=== PATIENT | male | born 1950 | race Caucasian/White ===

== ENCOUNTER 2016-09-18 03:08 | Emergency (ER) | payer MEDICARE, MEDICAID ==
[2016-09-18 04:24] LABS: CHLORIDE,CL 103 mmol/L (98-107); SODIUM,NA 140 mmol/L (136-145)
--- NOTE | 2016-09-18 04:34 | EDM.PDOC ---
ED HPI NEURO - General Chief Complaint: Neuro Symptoms/Deficits Stated Complaint: Left sided weakness with left sided facial droop Time Seen by Provider: 09/18/16 03:40 Source of Information: Reports: Patient, EMS, RN History Limitations: Reports: No limitations - History of Present Illness Symptom Onset Date: 09/18/16 Symptom Onset Time: 02:00 Timing/Duration: Reports: Improving Location (Neuro Complaint): Reports: face, lower extremity, left Quality (Neuro Complaint): Reports: weakness, altered speech Severity: mild Worsens with: Reports: None Associated Symptoms: Reports: no other symptoms Other Treatments [employer]PAR[employer]: none - Related Data Allergies/ADRs: Allergies Allergy/AdvReac Type Severity Reaction Status Date / Time Cephalosporins Allergy Cannot Verified 12/17/15 13:52 Remember Penicillins Allergy Cannot Verified 12/17/15 13:52 Remember Sulfa (Sulfonamide Allergy Cannot Verified 12/17/15 13:52 Antibiotics) Remember Past Medical History Cardiovascular History: Reports: Angina, Hypertension, PVD Respiratory History: Reports: COPD Gastrointestinal History: Reports: Chronic constipation, GERD Neurological History: Reports: Seizure Psychiatric History: Reports: Addiction, Anxiety, Dementia, Psychosis, Schizophrenia Endocrine/Metabolic History: Reports: Diabetes, type II Social & Family History - Tobacco Use Smoking Status *Q: Former Smoker ED ROS GENERAL - Review of Systems Review Of Systems: See Below Constitutional: Reports: weakness (left sided) HEENT: Reports: No symptoms Respiratory: Reports: No Symptoms Cardiovascular: Reports: Palpitations GI/Abdominal: Reports: No symptoms : Reports: no symptoms Musculoskeletal: Reports: no symptoms Skin: Reports: no symptoms Neurological: Reports: Weakness Psychiatric: Reports: No symptoms Hematologic/Lymphatic: Reports: no symptoms Immunologic: Reports: no symptoms ED EXAM, NEURO - Physical Exam Exam: See Below Exam Limited By: No limitations General Appearance: alert, WD/WN, no apparent distress Eye Exam: bilateral eye: proptosis Nose: normal inspection, normal mucosa, no blood Throat/Mouth: Normal inspection, Normal lips, Normal teeth, Normal gums, Normal oropharynx, Normal voice, No airway compromise Head Exam: other (unable to smile or raise right eyebrow) Neck: normal inspection, supple, non-tender, full range of motion, carotid bruit (bilateral) Respiratory/Chest: no respiratory distress, lungs clear, normal breath sounds, no accessory muscle use, chest non-tender Cardiovascular: irregularly irregular (atrial fibrillation) GI/Abdominal: normal bowel sounds, soft, non tender, no organomegaly, no distention, no abnormal bruit, no mass Neurological: alert, normal mood/affect, normal dorsiflexion, CN II-XII intact, oriented x 3, other (left lower extremity weakness) DTR: 1+: bicep (R), bicep (L), tricep (R), tricep (L), patella (L), achilles (L) Back Exam: normal inspection, full range of motion, NT Extremities: normal inspection, normal range of motion, non-tender, no pedal edema, normal capillary refill Psychiatric: normal affect, normal mood Skin Exam: Warm, Dry, Intact, Normal color, No rash EKG INTERPRETATION Rhythm: a-fib QRS: normal ST-T: normal QT: normal Course - Orders/Labs/Meds Orders: Active Orders 24 hr Category Date Time Status Head wo Cont [CT] Stat Exams 09/18/16 04:13 Taken Labs: Laboratory Tests 09/18/16 09/18/16 09/18/16 Range/Units 04:00 04:00 04:00 WBC 8.0 (4.0-10.0) x10^3/uL RBC 3.98 L (4.5-6.0) x10^6/uL Hgb 12.5 L (14.0-18.0) g/dL Hct 36.6 L (40.0-52.0) % MCV 92.0 (78.0-93.0) fL MCH 31.4 (26.0-32.0) pg MCHC 34.2 (32.0-36.0) g/dL RDW Coeff of Maluo 12.4 (10.0-15.0) % Plt Count 182 (130-400) x10^3/uL Neut % (Auto) 80.2 H (50.0-80.0) % Lymph % (Auto) 12.7 L (25.0-50.0) % Tillman % (Auto) 5.5 (2.0-11.0) % Eos % (Auto) 1.3 (0.0-4.0) % Baso % (Auto) 0.3 (0.2-1.2) % PT 10.5 (10.0-12.8) SEC INR 0.9 L (2.0-3.5) APTT 23.8 L (24.0-36.0) SEC Sodium 140 (136-145) mmol/L Potassium 3.9 (3.5-5.1) mmol/L Chloride 103 (98-107) mmol/L Carbon Dioxide 23 (21-32) mmol/L BUN 27 H (7-18) mg/dL Creatinine 1.2 (0.70-1.30) mg/dL Est Cr Clr Drug Dosing TNP Estimated GFR (MDRD) > 60 Glucose 181 H (74-106) mg/dL Calcium 9.7 (8.5-10.1) mg/dL POC Troponin I (0.00-0.08) ng/mL 09/18/16 Range/Units 04:06 WBC (4.0-10.0) x10^3/uL RBC (4.5-6.0) x10^6/uL Hgb (14.0-18.0) g/dL Hct (40.0-52.0) % MCV (78.0-93.0) fL MCH (26.0-32.0) pg MCHC (32.0-36.0) g/dL RDW Coeff of Malou (10.0-15.0) % Plt Count (130-400) x10^3/uL Neut % (Auto) (50.0-80.0) % Lymph % (Auto) (25.0-50.0) % Tillman % (Auto) (2.0-11.0) % Eos % (Auto) (0.0-4.0) % Baso % (Auto) (0.2-1.2) % PT (10.0-12.8) SEC INR (2.0-3.5) APTT (24.0-36.0) SEC Sodium (136-145) mmol/L Potassium (3.5-5.1) mmol/L Chloride (98-107) mmol/L Carbon Dioxide (21-32) mmol/L BUN (7-18) mg/dL Creatinine (0.70-1.30) mg/dL Est Cr Clr Drug Dosing Estimated GFR (MDRD) Glucose (74-106) mg/dL Calcium (8.5-10.1) mg/dL POC Troponin I 0.00 (0.00-0.08) ng/mL - Radiology Interpretation Free Text/Narrative:: No acute infarct or bleed. Old craniotomy on the right side. CT Results Date: 09/18/16 CT Results Time: 04:30 Departure - Departure Time of Disposition: 05:30 Disposition: DC/Tfer to Acute Hospital 02 Condition: good Clinical Impression: TIA due to embolism Atrial fibrillation Qualifiers: Atrial fibrillation type: unspecified Qualified Code(s): I48.91 - Unspecified atrial fibrillation ED Communication - Discussed Case With (1) Discussed Case With (1): Other Person/s Notified (1): Dr Caballero [facility] ("Old head trauma is contra for TPA") - Conversation Summary Admitting Provider Agreed to Patient's Admission: Yes Summary Comment: Dr. Caballero: Spoke with the care center from which the patient came. They gave him a different story of onset of symptoms than what was provided to us. They claim he was last seen normal at 10:00PM September 17, 2016. They told us he was last seen normal when they turned him at 2 AM September 18, 2016. Dr. Caballero states that the patient does not CTA requirements or acute stroke workup at this time. He would like the patient sent to the ER at [facility] in [place]. - My Orders Last 24 Hours: My Active Orders 09/18/16 04:13 Head wo Cont [CT] Stat - Assessment/Plan Last 24 Hours: My Active Orders 09/18/16 04:13 Head wo Cont [CT] Stat Assessment:: TIA New onset A. Fibrillation Plan: Transfer to [place] for further Neurological assessment.
== END 2016-09-18 05:20 | disposition short-term general hospital (02) ==
LOC: VM.ED 03:08
DX: G45.9 Transient cerebral ischemic attack, unspecified (principal); I74.9 Embolism and thrombosis of unspecified artery; I48.91 Unspecified atrial fibrillation; I10 Essential (primary) hypertension; J44.9 Chronic obstructive pulmonary disease, unspecified; K21.9 Gastro-esophageal reflux disease without esophagitis; F41.9 Anxiety disorder, unspecified; E11.9 Type 2 diabetes mellitus without complications; Z87.891 Personal history of nicotine dependence; Z88.0 Allergy status to penicillin; Z88.2 Allergy status to sulfonamides
CPT/HCPCS: 36415; 70450; 80048; 84484; 85025; 85610; 85730; 93005; 99285; 99285-GF